=== PATIENT | female | born 1985 | race Caucasian/White ===

== ENCOUNTER 2021-08-27 14:58 | Emergency (ER) | payer MEDICAID ==
[~2021-08-27] VITALS: Ht 162.6 cm; Wt 68.0 kg
[2021-08-27 15:20] VITALS: BP 140/91
--- NOTE | 2021-08-27 15:57 | PHYS DOC ---
Past Medical History Past Surgical History: No Surgical History Smoking Status: Never Smoker Alcohol Use: None General Adult EDM: Chief Complaint: TOE PROBLEM HPI: HPI: Patient is a 36 year old female who presents to the ED today complaining of an ingrown right great toenail, symptoms began a week ago. Patient states she was seen at [facility] 4 days ago and was given amoxicillin. She states she is here in the ED to have a toenail removed right now. Review of Systems: Review of Systems: Constitutional: Denies fever or chills. [] Musculoskeletal: Denies back pain or joint pain. [] Integument: Reports right ingrown toenail Neurologic: Denies headache, focal weakness or sensory changes. [] [] Psychiatric: Denies depression or anxiety. [] Heart Score: C/O Chest Pain: N/A Risk Factors: Risk Factors: DM, Current or recent (<one month) smoker, HTN, HLP, family history of CAD, obesity. Risk Scores: Score 0 - 3: 2.5% MACE over next 6 weeks - Discharge Home Score 4 - 6: 20.3% MACE over next 6 weeks - Admit for Clinical Observation Score 7 - 10: 72.7% MACE over next 6 weeks - Early Invasive Strategies Allergies: Allergies: Allergies Coded Allergies Type Severity Reaction Last Updated Verified No Known Drug Allergies 08/27/21 No Physical Exam: PE: Constitutional: Well developed, well nourished, no acute distress, non-toxic appearance. [] Skin: Right great toe noted for an ingrown toenail on the medial aspect of the toenail. There appears to be cutting on the tip of the lateral aspect of the right toenail. Patient reports having attempted to remove her nail unsuccessfully. There is drainage on the medial aspect of the toenail. There is swelling on the medial aspect of the toenail. There is erythema. There is tenderness. +2 right pedal pulse. Back: No tenderness, no CVA tenderness. [] Extremities: No tenderness, no cyanosis, no clubbing, ROM intact, no edema. [] Neurologic: Alert and oriented X 3, normal motor function, normal sensory function, no focal deficits noted. [] Psychologic: Affect normal, judgement normal, mood normal. [] Current Patient Data: Vital Signs: Vital Signs Date Time Temp Pulse Resp B/P (MAP) Pulse Ox O2 Delivery O2 Flow Rate FiO2 08/27/21 15:20 97.3 95 16 140/91 (107) 98 Room Air 97.3 EKG: EKG: [] Radiology/Procedures: Radiology/Procedures: [] Course & Med Decision Making: Course & Med Decision Making Pertinent Labs and Imaging studies reviewed. (See chart for details) This is a 36-year-old female patient presented to the ED today complaining of an infected right ingrown toenail that has been going on for 1 week patient was seen at [facility] and started on amoxicillin. He is here today stating she wants her toenail removed. Informed patient we do not have equipment to remove toenails in the emergency room needed we recommend doing th is routinely in the emergency room. Informed patient I will prefer she follows up with a cyber systems operations specialist which I will provide and they can remove her toenail. She stood up stating she is going to [facility] because she knows that we will remove it today Aria Disclaimer: Aria Disclaimer: This electronic medical record was generated, in whole or in part, using a voice recognition dictation system. Departure Departure Impression: Primary Impression: Ingrown toenail of right foot Disposition: LEFT AGAINST MEDICAL ADVICE Condition: STABLE MIKHAIL MARTINEZ SPECIAL TECHNICAL OPERATIONS OFFICER Aug 27, 2021 15:57
== END 2021-08-27 15:50 | disposition left against medical advice (07) ==
LOC: ER 14:58
DX: L60.0 Ingrowing nail (principal)
CPT/HCPCS: 99281